=== PATIENT | female | born 1935 | race Caucasian/White ===

== ENCOUNTER 2016-03-12 11:15 | Outpatient (CLI) | payer MEDICARE ==
[2016-03-12 11:53] LABS: #Basophils 0.1 thou/uL (0.0-0.2); #Eosinphils 0.7 thou/uL (0.0-0.7); #Lymphocytes 2.6 thou/uL (1.20-3.40); #Monocytes 0.6 thou/uL (0.11-0.59); #Neutrophils 6.5 thou/uL (1.40-6.50); %Basophils 1.3 % (0.0-1.0); %Lymphocytes 24.9 % (21.0-51.0); Hematocrit 43.9 % (36.0-47.0); Mean Platelet Volume 8.4 fL (7.4-10.4); Red Blood Cell (RBC) Count 4.43 mill/uL (4.20-5.40); White Blood Cell (WBC) Count 10.6 thou/uL (4.8-10.8)
[2016-03-12 12:05] LABS: Anion Gap 16 mmol/L (10-20); BUN (Urea Nitrogen) 42 mg/dL (9.8-20.1); Calc. Creatinine Clearance 0 mL/min (70-130); Carbon Dioxide 19 mmol/L (23-31); Chloride 109 mmol/L (98-107); Estimated GFR-MDRD 18; Phosphorus 4.7 mg/dL (2.3-4.7)
== END 2016-03-12 11:16 | disposition home or self-care (01) ==
LOC: NAV LAB 11:15
PROVIDERS: ATTEND Internal Medicine Nephrology
DX: N18.4 Chronic kidney disease, stage 4 (severe) (principal)
CPT/HCPCS: 36415; 80048; 83970; 84100; 85025

== ENCOUNTER 2016-07-10 10:44 | Outpatient (CLI) | payer MEDICARE ==
[2016-07-10 11:29] LABS: Anion Gap 16 mmol/L (10-20); BUN (Urea Nitrogen) 52 mg/dL (9.8-20.1); Calc. Creatinine Clearance 0 mL/min (70-130); Calcium 9.5 mg/dL (7.8-10.44); Carbon Dioxide 20 mmol/L (23-31); Chloride 108 mmol/L (98-107); Estimated GFR-MDRD 18; Glucose 117 mg/dL (83-110); Potassium 4.9 mmol/L (3.5-5.1); Sodium 139 mmol/L (136-145)
== END 2016-07-10 10:45 | disposition home or self-care (01) ==
LOC: NAV LAB 10:44
PROVIDERS: ATTEND Internal Medicine Nephrology
DX: N18.4 Chronic kidney disease, stage 4 (severe) (principal)
CPT/HCPCS: 36415; 80048; 83970

== ENCOUNTER 2016-12-11 10:58 | Outpatient (CLI) | payer MEDICARE ==
--- NOTE | 2016-12-11 14:30 | CT ---
CT ABDOMEN AND PELVIS WITHOUT CONTRAST: Date: 12/11/16 HISTORY: Generalized abdominal pain. COMPARISON: None. FINDINGS: Lung bases are clear. Large sliding hiatal hernia containing approximately 50% of the stomach. Kidneys are atrophic bilaterally. Evaluation for underlying mass is limited without intravenous cont rast. Multiple hypodensities of the left kidney and right kidney. Small punctate calculi superior le ft renal collecting system. There are multiple calcifications which appear dystrophic superior pole of right kidney. The aorta is markedly tortuous. There are extensive vascular calcifications of the aorta. There is a small bowel-containing right femoral hernia with a small amount of fluid in the hernia sa c. There is some mildly thickened small bowel loops proximal to this, as well as moderate fluid with in the mesentery. There is small volume fluid within the hernia sac. There is a fluid-containing lef t femoral hernia. The urinary bladder is markedly thickened. Severe diverticular disease sigmoid colon without active inflammation. The spleen has a somewhat rou nd contour with numerous calcified granulomas. Liver is unremarkable. There is atrophy of the right gluteus medius and minimus muscle. There is severe degenerative disc disease throughout the thoracolumbar spine. There is wedge cristian awa fracture of L3 with 30-40% height loss. There is also height loss at L5. IMPRESSION: 1. Right-sided femoral hernia containing loop of small bowel with abnormal mild dilatation and wall thickening and mesenteric edema of the proximal small bowel loops. Underlying ischemia cannot be tot ally excluded given there is some small volume fluid within the hernia sac. Surgical consultation is highly advised. 2. Small fluid-containing left-sided femoral hernia. 3. Multiple compression fractures with severe degenerative disease. Compression fracture seen at L5 and L3, as well as superior end plate deformities throughout the thoracolumbar spine. Patient is se verely osteopenic. Galina, nurse in Dr. Morris's office, notified of findings via telephone at 1130 hours. CODE CR. POS: JON
== END 2016-12-11 10:59 | disposition home or self-care (01) ==
LOC: NAV CT 10:58
PROVIDERS: ATTEND Family Medicine
DX: R10.84 Generalized abdominal pain (principal); M48.56XA Collapsed vertebra, not elsewhere classified, lumbar region, initial encounter for fracture; K41.20 Bilateral femoral hernia, without obstruction or gangrene, not specified as recurrent
CPT/HCPCS: 74176